=== PATIENT | male | born 1980 | race African-American/Black ===

== ENCOUNTER 2017-11-09 04:51 | Emergency (ER) | payer MEDICAID ==
[~2017-11-09] VITALS: Ht 182.9 cm; Wt 72.0 kg
[2017-11-09] MEDS ORDERED: LIDOCAINE HCL 1% 20ML VIAL (Pyxis) INJ MC ONE (07:00)
[2017-11-09] MEDS ORDERED: BACITRACIN ZINC OINT UDPKT TOP ONE (07:00)
[2017-11-09] MEDS ORDERED: LIDOCAINE HCL/PF 1% 10 MG/ML 5ML VIAL INL NR (07:23)
[2017-11-09 09:30] VITALS: BP 110/72
== END 2017-11-09 09:31 | disposition home or self-care (01) ==
LOC: ER 05:25
DX: S69.92XA Unspecified injury of left wrist, hand and finger(s), initial encounter (principal); L03.012 Cellulitis of left finger; W22.03XA Walked into furniture, initial encounter; Y93.89 Activity, other specified; Y92.89 Other specified places as the place of occurrence of the external cause; Y99.8 Other external cause status
CPT/HCPCS: 10060; 73130; 99284; J3490; Z7610

== ENCOUNTER 2019-01-02 01:16 | Emergency (ER) | payer MEDICAID ==
[~2019-01-02] VITALS: Ht 182.9 cm; Wt 75.0 kg
[2019-01-02] MEDS ORDERED: KETOROLAC 60MG/2ML VIAL IM ONE (04:00)
[2019-01-02 04:17] VITALS: BP 116/68
== END 2019-01-02 04:17 | disposition home or self-care (01) ==
LOC: ER 01:16
DX: R07.89 Other chest pain (principal); F17.210 Nicotine dependence, cigarettes, uncomplicated; Z71.6 Tobacco abuse counseling
CPT/HCPCS: 93005; 96372; 99283; 99406; J1885; Z7610

== ENCOUNTER 2023-05-19 02:46 | Emergency (ER) | payer OTHER, MEDICAID ==
[~2023-05-19] VITALS: Ht 175.3 cm; Wt 75.0 kg
[2023-05-19 02:52] VITALS: O2SAT 100
[2023-05-19] MEDS ORDERED: SULF1TAB48 MT (07:34)
[2023-05-19 08:16] VITALS: BP 128/79; PULSE 89; RESP 19; TEMP 97.7
== END 2023-05-19 08:18 | disposition home or self-care (01) ==
LOC: ER 02:46
DX: L73.9 Follicular disorder, unspecified (principal)
CPT/HCPCS: 99284

== ENCOUNTER 2023-12-18 18:02 | Emergency (ER) | payer OTHER, MEDICAID ==
[~2023-12-18] VITALS: Ht 182.9 cm; Wt 73.0 kg
[~2023-12-18 18:02] MED LIST: SULF1TAB48 MT
[2023-12-18 18:13] VITALS: O2SAT 100
[2023-12-18] MEDS ORDERED: DEXAMETHASONE 0.5MG/5ML ORAL SYR PO ONE (19:15)
[2023-12-18] MEDS: DEXAMETHASONE 10 MG/ML VIAL PO NR (20:50)
[2023-12-18] MEDS: KETOROLAC 60MG/2ML VIAL IM ONE (20:50)
[2023-12-18] MEDS ORDERED: BENZ1LOZ73 MT (22:27)
[2023-12-18] MEDS ORDERED: ACET-2708 MT (22:27)
[2023-12-18 22:40] VITALS: BP 129/83; PULSE 70; RESP 18; TEMP 98.6
== END 2023-12-18 22:41 | disposition home or self-care (01) ==
LOC: ER 18:02
DX: J02.9 Acute pharyngitis, unspecified (principal)
CPT/HCPCS: 99283; 87430; 87070; 96372; J1100; J1885; J8540

== ENCOUNTER 2024-05-13 20:42 | Emergency (ER) | payer OTHER, MEDICAID ==
[~2024-05-13] VITALS: Ht 182.9 cm; Wt 73.0 kg
[~2024-05-13 20:42] MED LIST changes: +ACET-2708 MT; +BENZ1LOZ73 MT
[2024-05-13 22:03] VITALS: BP 159/88; PULSE 63; RESP 16; TEMP 98.1; O2SAT 97
[2024-05-13 23:16] LABS: BASOPHILS % 0.2 % (0.0-2.0); DIFFERENTIAL COMMENT 0; HEMATOCRIT. 39.6 % (42.0-52.0); HEMOGLOBIN. 13.4 g/dL (14.0-18.0); LYMPHOCYTES % 10.6 % (20.0-50.0); MEAN CORPUSCULAR HEMOGLOBIN 35.4 pg (28.0-32.0); MEAN CORPUSCULAR HGB CONC 33.9 g/dL (31.0-37.0); MEAN CORPUSCULAR VOLUME 104.2 fL (80.0-94.0); MEAN PLATELET VOLUME 7.7 fl (7.4-10.4); MONOCYTES % 4.5 % (2.0-8.0); NEUTROPHILS % 84.7 % (40.0-76.0); PLATELET 233 x1000/uL (130-400); RED CELL DISTRIBUTION WIDTH 12.9 % (11.6-14.6); WHITE BLOOD COUNT 13.9 x1000/uL (4.5-11.0)
[2024-05-13 23:38] LABS: CHLORIDE 103 mEq/L (98-107); POTASSIUM 4.3 mEq/L (3.5-5.1); SODIUM 138 mEq/L (136-145)
[2024-05-13 23:39] LABS: CARBON DIOXIDE 30 mEq/L (21-32)
[2024-05-13 23:40] LABS: CALCIUM 10.4 mg/dL (8.7-10.4)
[2024-05-13 23:44] LABS: CREATININE 1.1 mg/dL (0.6-1.3)
[2024-05-13 23:45] LABS: GLUCOSE 127 mg/dL (70-105); UREA NITROGEN BLOOD 11 mg/dL (9-23)
[2024-05-13 23:46] LABS: ALANINE AMINOTRANSFERASE 12 IU/L (10-49); ALBUMIN 5.1 g/dL (3.2-4.8); ASPARTATE AMINOTRANSFERASE 19 IU/L (<34)
[2024-05-13 23:47] LABS: BILIRUBIN DIRECT 0.5 mg/dL (<=3.0); BILIRUBIN TOTAL 1.7 mg/dL (0.1-1.0)
[2024-05-14] MEDS ORDERED: MAG355OR21 MT (02:22)
[2024-05-14] MEDS ORDERED: ONDA4TAB50 MT (02:22)
[2024-05-14] MEDS ORDERED: NAPR-420 MT (02:22)
[2024-05-14] MEDS: MAGNESIUM/ALUMINUM HYDROXIDE/SIMETHICONE 30ML UDC PO ONE (02:59)
[2024-05-14] MEDS: ONDANSETRON 4MG ODT PO ONE (03:00)
[2024-05-14] MEDS: NAPROXEN 250MG TABLET PO ONE (03:00)
== END 2024-05-14 03:06 | disposition home or self-care (01) ==
LOC: ER 20:42
DX: B34.9 Viral infection, unspecified (principal); Z79.899 Other long term (current) drug therapy; Z00.00 Encounter for general adult medical examination without abnormal findings
CPT/HCPCS: 99284; 80076; 80048; 83690; 85025; 36415; 93005; Q0162

== ENCOUNTER 2025-07-08 23:33 | Emergency (ER) | payer BC, MEDICAID, OTHER ==
[~2025-07-08] VITALS: Ht 170.2 cm; Wt 63.0 kg
[~2025-07-08 23:33] MED LIST changes: +MAG355OR21 MT; +NAPR-420 MT; +ONDA4TAB50 MT
[2025-07-08 23:44] VITALS: O2SAT 100
[2025-07-09 00:51] LABS: BASOPHILS % 0.3 % (0.0-2.0); EOSINOPHILS % 0.1 % (0.0-5.0); HEMATOCRIT. 38.3 % (42.0-52.0); HEMOGLOBIN. 12.6 g/dL (14.0-18.0); LYMPHOCYTES % 12.3 % (20.0-50.0); MEAN PLATELET VOLUME 7.6 fl (7.4-10.4); MONOCYTES % 3.8 % (2.0-8.0); NEUTROPHILS % 83.5 % (40.0-76.0); PLATELET 232 x1000/uL (130-400); RED BLOOD CELL COUNT 3.67 mill/uL (4.7-6.1); RED CELL DISTRIBUTION WIDTH 12.9 % (11.6-14.6)
[2025-07-09 01:09] LABS: CREATININE 0.9 mg/dL (0.6-1.3); UREA NITROGEN BLOOD 8 mg/dL (9-23)
[2025-07-09 01:11] LABS: ASPARTATE AMINOTRANSFERASE 17 IU/L (<34); BILIRUBIN DIRECT 0.4 mg/dL (<=3.0); BILIRUBIN TOTAL 1.5 mg/dL (0.1-1.0); PROTEIN TOTAL 7.6 g/dL (6.0-8.3)
[2025-07-09] MEDS ORDERED: ONDA-239 PO (01:33)
[2025-07-09] MEDS: KETOROLAC 30MG/ML VIAL IV ONE (01:35)
[2025-07-09] MEDS: ONDANSETRON HCL 4MG/2ML INJ IV ONE (01:35)
[2025-07-09] MEDS: SODIUM CHLORIDE 0.9% 1,000 ML IV ONE (02:06)
[2025-07-09] MEDS: FAMOTIDINE 20MG TABLET PO ONE (02:14)
[2025-07-09] MEDS: MAGNESIUM/ALUMINUM HYDROXIDE/SIMETHICONE 30ML UDC PO ONE (02:14)
[2025-07-09 03:07] LABS: CLARITY URINE CLEAR (CLEAR); COLOR URINE YELLOW (YELLOW); GLUCOSE URINE NEGATIVE (NEGATIVE); KETONES URINE TRACE (NEGATIVE); LEUKOCYTE ESTERASE URINE NEGATIVE (NEGATIVE); NITRITE URINE NEGATIVE (NEGATIVE); OCCULT BLOOD URINE TRACE (NEGATIVE); PH URINE 5.5 (4.5-8.0); PROTEIN URINE 1+ (NEGATIVE); SPECIFIC GRAVITY URINE 1.025 (1.005-1.030); UROBILINOGEN URINE 1.0 E.U./dL (0.2-1.0)
[2025-07-09 03:32] VITALS: O2SAT 99
[2025-07-09 04:08] VITALS: BP 127/66; PULSE 73; RESP 11; TEMP 36.6
[2025-07-09 04:58] LABS: BACTERIA URINE TRACE; FINE GRANULAR CASTS URINE 0-5 /lpf; SQUAMOUS EPITHELIAL CELL URINE 1+ /lpf (RARE/1+); WBC URINE 0-2 /hpf (0-2)
[2025-07-09] MEDS ORDERED: MAG-55 MT ×2 (21:53→23:41)
[2025-07-09] MEDS ORDERED: DIPH-1091 MT ×2 (21:53→23:41)
== END 2025-07-09 04:37 | disposition home or self-care (01) ==
LOC: ER 23:33
DX: A08.4 Viral intestinal infection, unspecified (principal); R11.2 Nausea with vomiting, unspecified
CPT/HCPCS: 99285; 81003; 36415; 93005; 96374; 96361; 96375; 80076; 80048; 83690; 85025; J1885; J2405; J7030

== ENCOUNTER 2025-07-09 13:19 | Emergency (ER) | payer BC ==
[~2025-07-09] VITALS: Ht 172.7 cm; Wt 75.0 kg
[~2025-07-09 13:19] MED LIST changes: +ONDA-239 PO
[2025-07-09 13:35] VITALS: O2SAT 100
[2025-07-09 14:14] LABS: BASOPHILS % 0.4 % (0.0-2.0); EOSINOPHILS % 0.0 % (0.0-5.0); HEMATOCRIT. 38.7 % (42.0-52.0); HEMOGLOBIN. 12.8 g/dL (14.0-18.0); LYMPHOCYTES % 11.1 % (20.0-50.0); MEAN PLATELET VOLUME 7.7 fl (7.4-10.4); MONOCYTES % 5.7 % (2.0-8.0); NEUTROPHILS % 82.8 % (40.0-76.0); PLATELET 215 x1000/uL (130-400); RED BLOOD CELL COUNT 3.72 mill/uL (4.7-6.1); RED CELL DISTRIBUTION WIDTH 12.7 % (11.6-14.6)
[2025-07-09 14:31] LABS: CREATININE 0.9 mg/dL (0.6-1.3)
[2025-07-09 14:32] LABS: UREA NITROGEN BLOOD 9 mg/dL (9-23)
[2025-07-09] MEDS: SODIUM CHLORIDE 0.9% 2,250 ML IV ONE (14:41)
[2025-07-09] MEDS: PANTOPRAZOLE SODIUM 40 MG/VIAL IV ONE (14:42)
[2025-07-09] MEDS: ONDANSETRON HCL 4MG/2ML INJ IV ONE ×2 (14:42→14:57)
[2025-07-09] MEDS: MORPHINE SULFATE 4 MG/ML INJ (FOR IV/IM USE) IV ONE (14:56)
[2025-07-09] MEDS ORDERED: MAG-55 MT ×2 (21:53→23:41)
[2025-07-09] MEDS ORDERED: DIPH-1091 MT ×2 (21:53→23:41)
[2025-07-09 22:35] VITALS: BP 130/76; PULSE 67; RESP 16; TEMP 37.9; O2SAT 100
== END 2025-07-09 22:48 | disposition home or self-care (01) ==
LOC: ER 13:19
DX: K40.90 Unilateral inguinal hernia, without obstruction or gangrene, not specified as recurrent (principal); K52.9 Noninfective gastroenteritis and colitis, unspecified; J45.909 Unspecified asthma, uncomplicated
CPT/HCPCS: 80048; 85025; 36415; 74176; 96361; 96374; 96375; 99285; J2405; J2470; J2270; J7030; Z7610 ×2